=== PATIENT | male | born 1995 | race Caucasian/White ===

== ENCOUNTER 2020-01-25 17:22 | Emergency (ER) | payer OTHER ==
[~2020-01-25] VITALS: Ht 182.9 cm; Wt 78.2 kg
[~2020-01-25 17:22] MED LIST: NO
[2020-01-25] MEDS ORDERED: IBUP-2071 PO (17:31)
[2020-01-25] MEDS ORDERED: AMOX1TAB16 PO (17:31)
[2020-01-25] MEDS ORDERED: PERTUSS(ACELL),DIPH,TET VAC/PF 0.5 ML VIAL IM ONE (19:45)
[2020-01-25] MEDS ORDERED: SULFAMETHOX/TRIMETH DS 800-160 MG/TABLET PO ONE (19:45)
[2020-01-25] MEDS ORDERED: CEPHALEXIN MONOHYDRATE 500 MG CAPSULE PO ONE (19:45)
[2020-01-25 20:42] VITALS: BP 128/88
[2020-01-25] MEDS ORDERED: LIDOCAINE 1%/EPI 1:200,000/PF 10 ML VIAL INJ ONE (20:45)
== END 2020-01-25 21:33 | disposition home or self-care (01) ==
LOC: EMS 17:22
DX: L02.416 Cutaneous abscess of left lower limb (principal); L03.116 Cellulitis of left lower limb
CPT/HCPCS: 10060; 73590; 90471; 90715; 99283; J3490